=== PATIENT | male | born 1980 | race Caucasian/White ===

== ENCOUNTER → 2017-09-08 | Outpatient (REF) ==
[~2017-09-08] MED LIST: AZIT-1 PO; BUD8.6RPT NS; CEPH-312 PO; HYDR-3140 PO; LORA-787 PO; MON10 PO; MULT1CAP41 PO; NOR5/325 PO; ONDA4TAB PO
== END ==
LOC: AUD 11:10
PROVIDERS: ATTEND Nurse Practitioner Psychiatric/Mental Health
DX: Z01.10 Encounter for examination of ears and hearing without abnormal findings (principal)
CPT/HCPCS: 92552

== ENCOUNTER 2017-09-21 02:58 | Emergency (ER) | payer OTHER ==
[2017-09-21 03:01] VITALS: BP 143/103
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
[2017-09-21] MEDS ORDERED: ATOR10TA65 PO (03:09)
[2017-09-21] MEDS ORDERED: TEST5GEL7 PO (03:09)
[2017-09-21] MEDS ORDERED: OMEG-23 PO (03:09)
[2017-09-21] MEDS ORDERED: CALC500T6 PO (03:09)
== END 2017-09-21 03:29 | disposition home or self-care (01) ==
LOC: ER 03:10
DX: S39.012A Strain of muscle, fascia and tendon of lower back, initial encounter (principal); V48.6XXA Car passenger injured in noncollision transport accident in traffic accident, initial encounter
CPT/HCPCS: 99282